=== PATIENT | male | born 2000 | race Caucasian/White ===

== ENCOUNTER 2022-11-27 13:00 | Emergency (ER) | payer BC, SELFPAY ==
--- NOTE | ~2022-11-27 | XR_ITS ---
Right wrist Technique: PA, oblique, lateral, and ulnar deviation views were obtained. Clinical History: Pain Findings: No acute fracture or dislocation is seen. Osseous alignment is anatomic. Joint spaces are p reserved. Soft tissues are unremarkable. Impression: Unremarkable right wrist radiographs. Reviewed, dictated and finalized at location . AL TRAINER Impression: Unremarkable right wrist radiographs.
[2022-11-27 13:09] VITALS: BP 125/78; PULSE 85; RESP 16; TEMP 36.6; O2SAT 98
--- NOTE | 2022-11-27 13:37 | ED.GENADULT ---
HPI - General Adult General Chief complaint: Extremity Injury, Upper Stated complaint: rt arm injury Source: patient Mode of arrival: ambulatory Limitations: no limitations History of Present Illness HPI narrative: Patient presents for evaluation of right wrist pain following a fall 2 days ago. He was roller-skating and slipped with his right arm outstretched. He landed on his right wrist. He did not his head or have loss of consciousness. He reports 5/10 pain in the affected area, without descriptive quality. No radicular component. No paresthesias. He is right-hand dominant. He is not taking any medications to assist with the symptoms. He has some tenderness when he touches his right humerus but denies pain otherwise. No loss of ROM. No additional complaints or concerns. Related Data Home Medications Medication Instructions Recorded Confirmed No Home Medications 11/27/22 11/27/22 Allergies Allergy/AdvReac Type Severity Reaction Status Date / Time No Known Allergies Allergy Verified 11/27/22 13:44 Review of Systems Review of Systems: CONSTITUTIONAL: Denies fever, chills, or sweats. EYES: Denies visual changes, redness, or discharge. ENT: Denies rhinorrhea, congestion, sore throat, or otalgia. CARDIOVASCULAR: Denies chest pain, palpitations, or edema. RESPIRATORY: Denies cough or dyspnea. GASTROINTESTINAL: Denies abdominal pain, nausea, vomiting, or diarrhea. GENITOURINARY: Denies dysuria or hematuria. SKIN: Denies rash or itching. MUSCULOSKELETAL: Reports right wrist pain. Reports tenderness in the right humerus NEUROLOGIC: Denies headache, numbness, dizziness, or weakness. PSYCHIATRIC: Denies anxiety or depression. [facility] Past Medical History Medical History (Updated 11/27/22 @ 14:14 by ERICKA Cat, MARY) History of IBS Surgical History Surgical History No pertinent past surgical history Family History Family History Mother Family history non-contributory Social History Social History Smoking status: Never smoker Alcohol intake: current Alcohol use details: social Gender identity (if verbalized by the patient): Male Spiritual care concerns: No Exam Narrative: GENERAL: Well-appearing, well-nourished, and in no acute distress. HEAD: Normocephalic, atraumatic. EYES: PERRLA and EOMI. ENT: Nares clear, no rhinorrhea or epistaxis. Mucous membranes moist. Oropharynx without tonsillar hypertrophy exudate or other lesions. Bilateral TMs pearly hancock nonbulging NECK: Supple. No adenopathy or masses. No carotid bruits or JVD CHEST: Clear to auscultation. No respiratory distress. No wheezes rales or rhonchi HEART: Regular rate and rhythm. No murmur heard. Normal peripheral pulses. ABDOMEN: Soft, nontender, nondistended, normal active bowel sounds. EXTREMITIES: no tenderness in the right wrist. No crepitus or deformity. 5/5 hand property and equipment clerk strength bilaterally. Full range of motion of the right breast intact. SKIN: Warm, dry, no rash. NEURO: No focal deficits. Alert and oriented x3. PSYCH: Normal mood and affect. Course Course Emergency Course: This is a 22-year-old male who presented for evaluation of right wrist pain. X-ray was negative for fracture. Offered Smith wrap, which he declined. Recommended he purchased an [id number] wrist splint. Advised on RICE therapy. NSAIDs for pain. Follow up outpatient for further evaluation and treatment and go to ER for worsening symptoms. Pt in agreement with plan of care. Level of Care: Express Care Visit Vital Signs Vital signs: Vital Signs Temperature 36.6 C 11/27/22 13:09 Pulse Rate 85 11/27/22 13:09 Respiratory Rate 16 11/27/22 13:09 Blood Pressure 125/78 11/27/22 13:09 Pulse Oximetry 98 11/27/22 13:09 Temper
== END 2022-11-27 14:15 | disposition home or self-care (01) ==
PROVIDERS: Emergency Provider Nurse Practitioner
DX: S63.501A Unspecified sprain of right wrist, initial encounter (principal); W01.0XXA Fall on same level from slipping, tripping and stumbling without subsequent striking against object, initial encounter; Y93.51 Activity, roller skating (inline) and skateboarding; Y92.9 Unspecified place or not applicable
CPT/HCPCS: 73110; 99213; G0463

== ENCOUNTER 2025-03-28 12:27 | Emergency (ER) | payer BC, SELFPAY ==
--- OUTSIDE RECORDS SUMMARY | 2025-03-28 12:29 | XMS_ITS | Clinical Summary ---
Author Organization [facility] [employer] Address [address] [place] [address] Care Team Providers Care Missile Mechanic Name Role Phone Unavailable Primary Care Provider Unavailabl e Source Comments [facility],non-owned Affiliates and Associated Physician Practices is amultiple site organization consisting of ambulatory clinics and hospital sitesin [place], [place], [place] and [place]. This disclosure is being madepursuant to the Care Everywhere program and may not contain all information available regarding this patient. Last updated 18.[facility] Allergies No known active allergies Medications * Be aware that medications may not be up to date on this document. Alwaysverify current medications with the patient. ALBUTEROL IN Inhale by mouth as needed Active amitriptyline (ELAVIL) 10 MG tablet Take 10 mg by mouth at bedtime. 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 Gender Identity Not on file Sexual Orientation Not on file Last Filed Vital Signs Vital Sign Reading Time Taken Comments Blood Pressure 100/62 12/31/2016 3:48 PM ROOFING MACHINE OPERATOR Pulse 107 12/31/2016 3:48 PM ROOFING MACHINE OPERATOR Temperature 39.4 C (102.9 F) 12/31/2016 3:48 PM ROOFING MACHINE OPERATOR Respiratory Rate 16 12/31/2016 3:48 PM ROOFING MACHINE OPERATOR Oxygen Saturation 96% 12/31/2016 3:48 PM ROOFING MACHINE OPERATOR Inhaled Oxygen Concentration - - Weight 68 kg (150 lb) 12/31/2016 3:48 PM ROOFING MACHINE OPERATOR Height 172.7 cm (5' 8 ) 12/31/2016 3:48 PM ROOFING MACHINE OPERATOR Body Mass Index 22.81 12/31/2016 3:48 PM ROOFING MACHINE OPERATOR Plan of Treatment Health Maintenance Due Date Last Done Comments HIV SCREENING 2015 HPV VACCINE (1 - Male 3-dose series) 2015 HEPATITIS C SCREENING 08/19/2018 DTAP/TDAP/TD VACCINES (1 - Tdap) 2019 HEPATITIS B VACCINE (1 of 3 - 19+ 3-dose series) 2019 COVID-19 VACCINE (1 - 2023-2 5 season) 2024 DEPRESSION SCREENING 11/11/2024 INFLUENZA VACCINE (Season Ended) 2025 ZOSTER VACCINE (1 of 2) 2050 MENINGOCOCCAL GROUPS A/C/Y/W VACCINE Completed 08/22/2018 HIB VACCINE Aged Out No longer eligi ble based on patient's age to complete this topic MENINGOCOCCAL (Group B) VACC INE SHARED DECISION-MAKING Aged Out No longer eligibl e based on patient's age to complete this topic PNEUMOCOCCAL VACCINE Aged Out No long er eligible based on patient's age to complete this topic Insurance MULTIPLAN
--- OUTSIDE RECORDS SUMMARY | 2025-03-28 12:29 | XMS_ITS | Clinical Summary ---
Author Organization [facility] [employer] [place] Address [address] [address] Care Team Providers Care Lace Burn Out Tender Name Role Phone Sussy Etienne MD Primary Care Provider [phone] Allergies No known active allergies Medications albuterol sulfate HFA 90 mcg/actuation aerosol inhalerIndication s:Mild intermittent asthma without complication Take 2 Puffs by inhalation every 6 hours as needed for Shortness of Breath. 8.5 Gram 4 Active psyllium (FIBER-CAP) 0.52 gram CapsuleIndication s:Constipation, unspecified constipation type Take 1 Capsule by mouth daily. Or eat one serving of high fiber cereal daily. 4 Active sertraline (Zoloft) 100 mg tabletIndications :Mixed anxiety and depressive disorder Take 1 Tablet (100 mg) by mouth late in the day. 90 Tablet 5 Active Active Problems Problem Noted Date Diagnosed Date Obesity (BMI 30.0-34.9) 06/25/2024 Pilonidal cyst 01/21/2024 Mild intermittent asthma without complication Mixed anxiety and depressive disorder 04/23/2023 Intractable migraine without aura and without status migrainosus 04/23/2023 Encounters Date Type Department Care Team Description 03/12/2025 Chart Note [facility] [employer] [place] [address] [place] [address] Francois Franklin 03/04/2025 Telephone [facility] [employer] [place] [address] [place] [address] Francois Franklin CoCM Camryn Appt (Rescheduled Saturday03/08/25 appointment to 03/12/25 at 11 AM by video, per provider.) 02/25/2025 Telephone [facility] at [place] [address] [facility] [place] [address] Francois Franklin CoCM Camryn Appt (2nd contact. Rescheduled appointment to 03/08/25 at 10:30 AM by video, per pt request due to work schedule conflict.) 02/24/2025 Chart Note [facility] at [address] [place] [address] Francois Franklin 02/09/2025 Telephone [facility] at [address] [facility] [place] [address] Francois Franklin CoCM Camryn Appt (1st contact. Pt rescheduled to , 02/25/25 due to not feeling well.) 01/27/2025 External Device Data ST[place] ABSTRACTION Provider, Abstract 01/22/[address] [id number] Francois Franklin CoCM Camryn Appt (Called to correct double booked appointment. Moved this appointment to 10 AM on 02/09/25.) 01/21/2025 11:00 AM CDT Video Visit [facility] at [place] [address] [facility] [place] [address] Francois Franklin Mixed anxiety and depressive disorder (Primary Dx) 01/16/2025 External Device Data STL ABSTRACTION Provider, Abstract 01/16/2025 External Device Data STL ABSTRACTION Provider, Abstract 01/15/2025 Chart Note [facility] at [place] [address] [place] [address] Francois Franklin 12/30/2024 External Device Data [place] ABSTRACTION Provider, Abstract 12/30/2024 External Device Data [place] ABSTRACTION Provider, Abstract 12/29/2024 Telephone [facility] at Work [employer] [address] [place] [address] Francois Franklin CoCM Camryn Appt (1st contact. Rescheduled appointment to , 01/21/25 at 11 AM by video.) from Last 3 Months Immunizations Immunization Administration Dates Next Due INFLUENZA VACCINE TRIVALENT SPLIT VIRUS, (6 MOS UP), 0.5ML (PF), IM 08/19/2024 Family History Medical History Relation Name Comments Heart defect Brother 1 No Known Problems Brother 2 Asthma Father Unknown Maternal Grandfather No Known Problems Maternal Grandmother ADHD Mother Migraines Mother Other Mother auto immue Unknown Paternal Grandfather No Known Problems Paternal Grandmother Relation Name Status Comments Brother 1 Alive Brother 2 Alive Father Alive Maternal Grandfather Other Maternal Grandmother Alive Mother Alive Paternal Grandfather Other Paternal Grandmother Alive Social History Tobacco Use Types Packs/Day Years Used Date Smoking Tobacco: Never Passive Smoke Exposure: Never Smokeless Tobacco: Never Tobacco Cessation:Counseling Given: Not Answered Alcohol Use Standard Drinks/Week Comments Not Currently 0 (1 standard drink = 0.6 oz pure alcohol) rarely, every couple of months Sex and Gender Information Value Date Recorded Sex Assigned at Not on file Legal Sex Male 8:16 AM CDT Gender Identity Not on file Sexual Orientation Not on file Last Filed Vital Signs Vital Sign Reading Time Taken Comments Blood Pressure 116/72 09/08/2024 8:29 AM CDT Pulse 75 09/08/2024 8:29 AM CDT Temperature 36.4 C (97.6 F) 09/08/2024 8:29 AM CDT Respiratory Rate 18 09/08/2024 8:29 AM CDT Oxygen Saturation 97% 09/08/2024 8:29 AM CDT Inhaled Oxygen Concentration - - Weight 91.4 kg (201 lb 9.6 oz) 09/08/2024 8:29 A M CDT Height 175.3 cm (5' 9 ) 09/08/2024 8:29 AM CDT Body Mass Index 29.77 09/08/2024 8:29 AM CDT Plan of Treatment Health Maintenance Due Date Last Done Comments HPV VACCINES (1 - Male 3-dose series) 2015 DTAP/TDAP/TD VACCINES (1 - Tdap) 2019 HEPATITIS B VACCINES (1 of 3 - 19+ 3-dose series) 08/11 INFLUENZA VACCINE Completed 08/19/2024 Care Teams Lace Burn Out Tender Relationship Specialty Start Date End Date Sussy Etienne MD [address] [place] [phone] PCP - General Internal Medicine 04/13/24
[2025-03-28 12:30] VITALS: BP 119/67; PULSE 109; RESP 16; TEMP 37.2; O2SAT 100
--- OUTSIDE RECORDS SUMMARY | 2025-03-28 12:52 | XMS_ITS | Clinical Summary ---
Author Organization [facility] [employer] [place] Address [address] [address] Care Team Providers Care Trimming Machine Set Up Operator Name Role Phone Sussy Etienne MD Primary Care Provider [phone] Allergies No known active allergies Medications albuterol [...] Department Care Team Description 03/12/2025 Chart Note [facility] [employer] [place] [address] [place] [address] Francois Franklin 03/04/2025 Telephone [facility] [employer] [place] [address] [place] [address] Francois Franklin CoCM Camryn Appt (Rescheduled Saturday03/08/25 appointment to 03/12/25 at 11 AM by video, per provider.) 02/25/2025 Telephone [facility] at [place] [address] [facility] [place] [address] Francois Franklin CoCM Camryn Appt (2nd contact. Rescheduled appointment to 03/08/25 at 10:30 AM by video, per pt request due to work schedule conflict.) 02/24/2025 Chart Note [facility] at [address] [place] [address] Francois Franklin 02/09/2025 Telephone [facility] at [address] [facility] [place] [address] Francois Franklin CoCM Camryn Appt (1st contact. Pt rescheduled to , 02/25/25 due to not feeling well.) 01/27/2025 External Device Data ST[place] ABSTRACTION Provider, Abstract 01/22/[address] [id number] Frnacois Franklin CoCM Camryn Appt (Called to correct double booked appointment. Moved this appointment to 10 AM on 02/09/25.) 01/21/2025 11:00 AM CDT Video Visit [facility] at [place] [address] [place] [address] Francois Franklin Mixed anxiety and depressive disorder (Primary Dx) 01/16/2025 External Device Data STL ABSTRACTION Provider, Abstract 01/16/2025 External Device Data ST[employer] ABSTRACTION Provider, Abstract 01/15/2025 Chart Note [facility] at [place] [address] [place] [address] Francois Franklin 12/30/2024 External Device Data STL ABSTRACTION Provider, Abstract 12/30/2024 External Device Data STL ABSTRACTION Provider, Abstract 12/29/2024 Telephone [facility] [employer] [address] [place] [address] Francois Franklin CoCM Camryn Appt [...] 08/11 INFLUENZA VACCINE Completed 08/19/2024 Care Teams Trimming Machine Set Up Operator Relationship Specialty Start Date End Date Sussy Etienne MD [address] [place] [address] PCP - General Internal Medicine 04/13/24
--- OUTSIDE RECORDS SUMMARY | 2025-03-28 12:52 | XMS_ITS | Clinical Summary ---
Author Organization [facility] [employer] Address [address] [place] [address] Care Team Providers Care Bed Manager Name Role Phone Unavailable Primary Care Provider Unavailabl e Source Comments [facility],non-owned Affiliates and Associated Physician Practices is amultiple site organization consisting of ambulatory clinics and hospital sitesin [place], [place], [place] and [place]. This disclosure is being madepursuant to the Care Everywhere program and may not contain all information available regarding this patient. 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 Gender Identity Not on file Sexual Orientation Not on file Last Filed Vital Signs Vital Sign Reading Time Taken Comments Blood Pressure 100/62 12/31/2016 3:48 PM ASSOCIATE MUSIC PROFESSOR Pulse 107 12/31/2016 3:48 PM ASSOCIATE MUSIC PROFESSOR Temperature 39.4 C (102.9 F) 12/31/2016 3:48 PM ASSOCIATE MUSIC PROFESSOR Respiratory Rate 16 12/31/2016 3:48 PM ASSOCIATE MUSIC PROFESSOR Oxygen Saturation 96% 12/31/2016 3:48 PM ASSOCIATE MUSIC PROFESSOR Inhaled Oxygen Concentration - - Weight 68 kg (150 lb) 12/31/2016 3:48 PM ASSOCIATE MUSIC PROFESSOR Height 172.7 cm (5' 8 ) 12/31/2016 3:48 PM ASSOCIATE MUSIC PROFESSOR Body Mass Index 22.81 12/31/2016 3:48 PM ASSOCIATE MUSIC PROFESSOR Plan of Treatment Health Maintenance Due Date [...]
[2025-03-28] MEDS: HYDROcodone/acetaminophen (*CRX) 5-325 MG TABLET 1 TAB PO (13:59)
--- NOTE | 2025-03-28 14:21 | ED.SKABFB ---
HPI - Skin/Abscess/Foreign Bdy General Chief complaint: Skin/Abscess/Foreign Body Stated complaint: abscess lower back Time Seen by Provider: 03/28/25 12:45 History of Present Illness HPI narrative: Patient is a 24-year-old male who presents ER with pilonidal abscess. Developing over the last week. No fevers or chills or sweats. No drainage. Has had similar abscess before. Went kayaking yesterday for 8 hours which worsened things. Related Data Allergies Allergy/AdvReac Type Severity Reaction Status Date / Time No Known Allergies Allergy Verified 03/28/25 12:28 Review of Systems Constitutional: Constitutional: Reports no additional constitutional complaints Cardiovascular: Cardiovascular: Reports no additional cardiovascular complaints Respiratory: Respiratory: Reports no additional respiratory complaints Integumentary/Breasts: Skin/Breast: Reports system reviewed and no additional complaints, except as docu PMFSH Past Medical History Medical History (Updated 03/28/25 @ 14:24 by Mateus Izquierdo MD) History of IBS Surgical History Surgical History No pertinent past surgical history Family History Family History Mother Family history non-contributory Social History Social History Smoking status: Never smoker Alcohol intake: current Alcohol use details: social Gender identity (if verbalized by the patient): Male Spiritual care concerns: No Exam Narrative: GENERAL: Well-appearing, well-nourished, and in no acute distress. HEAD: Normocephalic, atraumatic. ENT: Mucous membranes moist. NECK: Supple. EXTREMITIES: Normal range of motion. No edema. SKIN: Warm, dry, no rash. Large pilonidal cyst not draining. No cellulitis. NEURO: Alert and oriented x3. PSYCH: Normal mood and affect. Course Course Emergency Course: Discharge with Bactrim and [place]. Follow up with General surgery. Vital Signs Vital signs: Vital Signs Temperature 98.9 F 03/28/25 12:30 Pulse Rate 109 H 03/28/25 12:30 Respiratory Rate 16 03/28/25 12:30 Blood Pressure 119/67 03/28/25 12:30 Pulse Oximetry 100 03/28/25 12:30 Oxygen Delivery Room Air 03/28/25 12:30 Temperature 98.9 F 03/28/25 12:30 Pulse Rate 109 H 03/28/25 12:30 Respiratory Rate 16 03/28/25 12:30 Blood Pressure 119/67 03/28/25 12:30 Pulse Oximetry 100 03/28/25 12:30 Oxygen Delivery Room Air 03/28/25 12:30 Procedures Abscess I/D Pilonidal: Date of Incision: 03/28/25 Time of Incision: 14:23 Local Anesthetic: lidocaine 1% and with epi Amount of anesthesia used (mL): 7 Technique: incised with #11 blade Packing used?: iodoform I&D Results: Pus Complications: pain Abcess I&D Additional Comments: Initial cephalad incision yielded no drainage so a spot was found closer to the gluteal cleft and drained Discharge Plan Discharge Clinical Impression: Cyst, pilonidal, with abscess Patient Disposition: Home Condition: Stable Instructions: Pilonidal Cyst (ED) Additional Instructions: Return ER if you have worsening pain, you have fever over 100.4° F, or you have additional concerns. Remove your packing in 48 hours. Patient Language: Icelandic Prescriptions: New hydrocodone-acetaminophen 5-325 mg tablet 1 tablet PO Q6H PRN (Reason: pain) Qty: 12 0RF sulfamethoxazole-trimethoprim [Bactrim DS] 800-160 mg tablet 1 tablet PO Q12H Qty: 14 0RF Follow-up/Referrals: Jose Harper MD [Physician] - 3 Days Zain,Brenda Fierro APRN [Primary Care Provider] - Stand Alone Forms: Work/School Release IP
[2025-03-28 15:22] VITALS: BP 115/79; PULSE 69; RESP 14; O2SAT 100
== END 2025-03-28 15:22 | disposition home or self-care (01) ==
PROVIDERS: Emergency Provider Emergency Medicine; PCP Nurse Practitioner Adult Health
DX: L05.01 Pilonidal cyst with abscess (principal); K58.9 Irritable bowel syndrome, unspecified
CPT/HCPCS: 10080; 99283; A9270